=== PATIENT | male | born 1995 | race Caucasian/White ===

== ENCOUNTER 2024-06-22 15:29 | Outpatient (CLI) | payer OTHER, SELFPAY ==
--- NOTE | ~2024-06-22 | US_ITS ---
EXAMINATION: US scrotum doppler DATE: 06/22/2024 17:15 INDICATION: Post traumatic right testicular pain with dense firm) TECHNIQUE: Testicular sonogram utilizing grayscale and Doppler COMPARISON: None. FINDINGS: The right testis measures 4.2 x 2.4 x 3.0 cm. The left testis measures 4.6 x 2.0 x 3.1 cm. There is a 3.0 x 2.5 x 2.0 cm region of prominent decreased echogenicity in the right testis. Otherwise symmetr ic normal grayscale appearance to both testes. Vascular flow is identified in both testes which is sl ightly more prominent in the region of decreased echogenicity in the right testis. There is no eviden t mass effect or distortion of the normal striated pattern of vascularity in the right testis. The pe ripheral capsule of the right testis appears to remain intact. The right epididymis is normal with no rmal vascular flow. The left epididymis is normal with normal vascular flow. There is no varicocele o r hydrocele. IMPRESSION: 1. 3.0 x 2.5 x 2.0 cm region of prominent decreased echogenicity and with mildly increased vascular flow in the right testis. There is however no evident distortion or mass effect upon the vessels on c olor Doppler passing through the region of decreased echogenicity which argues against a mass and fav or a posttraumatic contusion. Would however recommend follow-up ultrasound in a few weeks to document resolution. Reviewed, dictated and finalized at location A. IMPRESSION: 1. 3.0 x 2.5 x 2.0 cm region of prominent decreased echogenicity and with mild ly increased vascular flow in the right testis. There is however no evident dis tortion or mass effect upon the vessels on color Doppler passing through the re gion of decreased echogenicity which argues against a mass and favor a posttrau matic contusion. Would however recommend follow-up ultrasound in a few weeks to document resolution.
== END 2024-06-22 15:30 | disposition home or self-care (01) ==
PROVIDERS: PCP Nurse Practitioner Family; Visit Provider Nurse Practitioner Family
DX: N50.811 Right testicular pain (principal)
CPT/HCPCS: 76870; 93976

== ENCOUNTER 2025-06-05 16:02 | Emergency (ER) | payer OTHER, SELFPAY ==
--- OUTSIDE RECORDS SUMMARY | 2025-06-05 16:05 | XMS_ITS | Clinical Summary ---
Author Organization [facility] Address [address] [place] [address] Care Team Providers Care Merchandise Carrier Name Role Phone Chas Alpa Newberry APRN-TECHNICAL SPECIALIST CYTOGENETICS Primary Care Provider Source Comments [facility],non-owned Affiliates and Associated Physician Practices is amultiple site organization consisting of ambulatory clinics and hospital sitesin [place], [place], [place] and [place]. This disclosure is being madepursuant to the Care Everywhere program and may not contain all information available regarding this patient. Last updated 18.[facility] Medications * This document contains information received from the source organization and may not represent a complete record from that organization. * Be aware that medications may not be up to date on this document. Alwaysverify current medications with the patient. hydrOXYzine HCl (Atarax) 50 MG tabletIndication s:Anxiety Take 1 (one) tablet by mouth every 6 hours as needed Reasons: Feeling Anxious 15 tablet 1 5 Active buPROPion SR 12hr (Wellbutrin-SR) 150 MG tabletIndication s:Depression,Ezequiel or Depressive Disorder,SSRI-In duced Sexual Dysfunction Take 1 (one) tablet by mouth 2 times daily Reasons: Depression, Major Depressive Disorder, Sexual Dysfunction Resulting From SSRI Medication Use 15 tablet 1 5 Active PARoxetine (Paxil) 30 MG tabletIndication s:Major Depressive Disorder Take 1 (one) tablet by mouth once daily Reasons: Major Depressive Disorder 15 tablet 1 5 Active traZODone (Desyrel) 50 MG tabletIndication s:Insomnia Take 1 (one) tablet by mouth nightly as needed for Insomnia Reasons: Trouble Sleeping 15 tablet 1 5 Active Active Problems Problem Noted Date Diagnosed Date Episode of recurrent major d epressive disorder, unspecified depression episode severity 03/26/2025 Encounters * This document contains information received from the source organization and may not represent a complete record from that organization. Date Type Department Care Team Description 03/26/2025 Travel from Last 3 Months Family History Medical History Relation Name Comments Hypertension Father Relation Name Status Comments Father Social History Tobacco Use Types Packs/Day Years Used Date Smoking Tobacco: Every Day Cigarettes Smokeless Tobacco: Never Tobacco Cessation:Ready to Q uit: Not Asked; Counseling Given: Not Answered Alcohol Use Standard Drinks/Week Comments Not Currently 0 (1 standard drink = 0.6 oz pur e alcohol) AUDIT-C Answer Date Recorded Q1: How often do you have a drink containing alcohol? Never 03/26/2025 Q2: How many drinks containi ng alcohol do you have on a typical day when you are drinking? Patient does not drink Q3: How often do you have si x or more drinks on one occasion? Never 03/26/2025 Overall Financial Resource Strain (CARDIA) Answe r Date Recorded How hard is it for you to pa y for the very basics like food, housing, medical care, and heating? Patient declined 03/26/2025 PHQ-2 Answer Date Recorded Patient Health Questionnaire-2 Score 6 03/26/2025 [facility] - Occupational Stress Questionnaire Answer Date Recorded Do you feel stress - tense, restless, nervous, or anxious, or unable to sleep at night because your mind is troubled all the time - these days? Patient declined 03/26/2025 Hunger Vital Sign Answer Date Recorded Within the past 12 months, y ou worried that your food would run out before you got the money to buy more. Patient declined Within the past 12 months, t he food you bought just didn't last and you didn't have money to get more. Patient declined PRAPARE - Transportation Answer Date Re corded In the past 12 months, has l ack of transportation kept you from medical appointments or from getting medications? No 03/08 In the past 12 months, has l ack of transportation kept you from meetings, work, or from getting things needed for daily living? No 03/26/2025 Housing Stability Vital Sign Answer Shoaib e Recorded In the last 12 months, was t here a time when you were not able to pay the mortgage or rent on time? No 03/26/2025 In the past 12 months, how m any times have you moved where you were living? 0 03/26/2025 At any time in the past 12 m [facility], were you homeless or living in a senior care (including now)? No 03/26/2025 Sex and Gender Information Value Date Recorded Sex Assigned at Not on file Legal Sex Male 5:12 PM CDT Gender Identity Not on file Sexual Orientation Not on file Last Filed Vital Signs Vital Sign Reading Time Taken Comments Blood Pressure 138/76 03/29/2025 8:44 AM CDT Pulse 75 03/29/2025 8:44 AM CDT Temperature 36.6 C (97.9 F) 03/29/2025 8:44 AM CDT Respiratory Rate 18 03/29/2025 8:44 AM CDT Oxygen Saturation 99% 03/29/2025 8:44 AM CDT Inhaled Oxygen Concentration - - Weight 88.5 kg (195 lb) 03/26/2025 10:33 PM CDT Height 180.3 cm (5' 10.98) 03/26/2025 10:33 PM CDT Body Mass Index 27.21 03/26/2025 10:33 PM CDT Plan of Treatment Health Maintenance Due Date Last Done Comments HIV SCREENING 2010 HEPATITIS C SCREENING 04/15/2013 DTAP/TDAP/TD VACCINES (1 - Tdap) 2014 HEPATITIS B VACCINE (1 of 3 - 19+ 3-dose series) 2014 PNEUMOCOCCAL VACCINE (1 of 2 - PCV) 2014 HPV VACCINE (1 - 3-dose SCDM series) 2022 COVID-19 VACCINE (3 - 2023-2 5 season) 2024 03/21/2021, 02/19/2021 DEPRESSION SCREENING 11/07/2024 INFLUENZA VACCINE (#1) 2025 ZOSTER VACCINE (1 of 2) 2045 HIB VACCINE Aged Out No longer eligi ble based on patient's age to complete this topic MENINGOCOCCAL (Group B) VACCINE SHARED DECISION-MAKING Aged Out No longer eligible based on patient's age to complete this topic MENINGOCOCCAL GROUPS A/C/Y/W VACCINE Aged Out No longer eligible b ased on patient's age to complete this topic Procedures Procedure Name Priority Date/Time Associated Diagnosis Comments CARDIAC EKG ORDER 03/27/2025 5:4 3 PM CDT T4 FREE DIRECT REFLEXED Routine 03/26/2025 11:55 PM CDT TSH REFLEX FREE T4 Routine 03/26/2025 11 :55 PM CDT LIPID PROFILE Routine 03/26/2025 11:55 PM CDT HEMOGLOBIN A1C Routine 03/26/2025 11:55 PM CDT COMPREHENSIVE METABOLIC PANEL Routine 03/26/2025 11:55 PM CDT CBC W AUTO DIFFERENTIAL Routine 03/26/2025 11:55 PM CDT URINE DRUG SCREEN IMMUNOASSAY STAT 03/26/2025 11:55 PM CDT EKG 12-LEAD STAT 03/26/2025 5:33 PM CDT Tachycardia from Last 3 Months Results * CARDIAC EKG ORDER (03/27/2025 5:43 PM CDT) Narrative 03/27/2025 5:43 PM CDT Ordered by an unspecified provider. us Scanned Document CARDIAC SERVICES ORDERABLES Fin al Result * T4 FREE DIRECT REFLEXED (03/26/2025 11:55 PM CDT) T4 Free 0.99 0.70 - 1.50 ng/dL 03/27/2025 1:08 AM CDT [facility] Blood BLOOD SPECIMEN / Unknown Venipuncture / Unknown 03/26/2025 11:55 PM CDT 03/27/2025 12:01 AM CDT Violeta Uriarte FREE LANCE MODEL-ASSISTANT WAREHOUSE MANAGER LAB - CHEMISTRY ORDERABLE S Final Result Performing Organization Address City/[facility]/ZIP Co de Phone Number [facility] [address] [place] [address] * (ABNORMAL) TSH REFLEX FREE T4 (03/26/2025 11:55 PM CDT) TSH 5.452(H) 0.350 - 4.940 uIU/mL 03/27/2025 12:37 AM CDT [facility] Blood BLOOD SPECIMEN / Unknown Venipuncture / Unknown 03/26/2025 11:55 PM CDT 03/27/2025 12:01 AM CDT Violeta Uriarte FREE LANCE MODEL-ASSISTANT WAREHOUSE MANAGER LAB - CHEMISTRY ORDERABLE S Final Result Performing Organization Address [facility] de Phone Number [facility] [address] [place] [id number] * HEMOGLOBIN A1C (03/26/2025 11:55 PM CDT) Hemoglobin A1c 5.1 <5.7 % 03/27/2025 12:34 AM CDT [facility] Estimated Average Glucose 100 mg/dL 03/27/2025 12:34 AM CDT [facility] Blood BLOOD SPECIMEN / Unknown Venipuncture / Unknown 03/26/2025 11:55 PM CDT 03/27/2025 12:01 AM CDT Narrative [facility] - 03/27/2025 12:34 AM CDT HbA1c Interpretation: Normal: < 5.7% Pre-diabetes: 5.7-6.4% Diabetes: Equal to or greater than 6.5% Test results diagnostic of diabetes should be repeated for confirmation. Treatment target values recommended by ADA and other clinical organizations should be used to evaluate metabolic control in patients. This test should not replace glucose testing for patients with Type 1 diabetes, pediatric patients, or women. Falsely low HbA1c results may be observed in patients with clinical conditions that shorten erythrocyte life span or decrease mean erythrocyte age such as the presence of unstable hemoglobin variants, elevated hemoglobin F level or other causes of hemolytic anemia. HbA1c may not accurately reflect glycemic control when clinical conditions that affect erythrocyte survival are present. Severe Iron deficiency anemia may yield falsely high results. Hemoglobin A1c assay should not be used to diagnose or monitor diabetes in patients with malignancy, recent blood transfusion, chronic kidney or liver disease. This method may yield falsely low results when hemoglobin (HbF) exceeds 5% in the specimen. The Lyman Alinity assay for the measurement of HbA1c is a National Glycohemoglobin Standardization Program (NGSP) certified method. Violeta Julee Chapito FREE LANCE MODEL-ASSISTANT WAREHOUSE MANAGER LAB - CHEMISTRY ORDERABLE S Final Result [facility] [address] [place] [address] * (ABNORMAL) CBC W AUTO DIFFERENTIAL (03/26/2025 11:55 PM CDT) WBC 11.1(H) 4.0 - 10.7 x10E9/L 03/27/2025 12:05 AM CDT [facility] RBC Count 5.56 4.30 - 5.80 x10E12/L 03/27/2025 12:05 AM CDT [facility] Hemoglobin 17.2 13.3 - 17.5 g/dL 03/27/2025 12:05 AM CDT [facility] Hematocrit 51.1 38.7 - 51.1 % 03/27/2025 12:05 AM CDT [facility] MCV 91.9 80.0 - 98.0 fL 03/27/2025 12:05 AM CDT [facility] MCH 30.9 26.7 - 33.6 pg 03/27/2025 12:05 AM CDT [facility] MCHC 33.7 31.7 - 36.3 g/dL 03/27/2025 12:05 AM CDT [facility] RDW-CV 12.6 11.3 - 14.8 % 03/27/2025 12:05 AM CDT [facility] Platelet Count 325 150 - 420 x10E9/L 03/27/2025 12:05 AM CDT [facility] MPV 9.7 7.8 - 11.4 fL 03/27/2025 12:05 AM CDT [facility] Neutrophil % 61.4 41.0 - 74.0 % 03/27/2025 12:05 AM CDT [facility] Lymphocyte % 26.2 17.0 - 47.0 % 03/27/2025 12:05 AM CDT [facility] Monocyte % 7.2 3.0 - 11.0 % 03/27/2025 12:05 AM CDT [facility] Eosinophil % 4.3 0.0 - 7.0 % 03/27/2025 12:05 AM CDT [facility] Basophil % 0.5 0.0 - 1.6 % 03/27/2025 12:05 AM CDT [facility] Immature Granulocytes % 0.4 0.0 - 1.0 % 03/27/2025 12:05 AM CDT [facility] Neutrophil Absolute 6.78 1.60 - 7.50 x10E9/L 03/27/2025 12:05 AM CDT [facility] Lymphocyte Absolute 2.90 1.00 - 4.40 x10E9/L 03/27/2025 12:05 AM CDT [facility] Monocyte Absolute 0.80 0.15 - 1.00 x10E9/L 03/27/2025 12:05 AM CDT [facility] Eosinophil Absolute 0.48 0.00 - 0.60 x10E9/L 03/27/2025 12:05 AM T [facility] Basophil Absolute 0.05 0.00 - 0.13 x10E9/L 03/27/2025 12:05 AM CDT [facility] Blood BLOOD SPECIMEN / Unknown Venipuncture / Unknown 03/26/2025 11:55 PM CDT 03/27/2025 12:01 AM CDT Violeta Uriarte FREE LANCE MODEL-ASSISTANT WAREHOUSE MANAGER LAB - HEMATOLOGY ORDERABL ES Final Result [facility] [address] [place] [address] * (ABNORMAL) COMPREHENSIVE METABOLIC PANEL (03/26/2025 11:55 PM CDT) Pathologist [facility] Glucose 85 70 - 99 mg/dL 03/27/2025 12:19 AM CDT [facility] Sodium 143 136 - 145 mmol/L 03/27/2025 12:19 AM CDT [facility] Potassium 4.1 3.5 - 5.1 mmol/L 03/27/2025 12:19 AM T [facility] Chloride 110(H) 98 - 107 mmol/L 03/27/2025 12:19 AM T [facility] CO2 21(L) 22 - 29 mmol/L 03/27/2025 12:19 AM CDT [facility] Calcium 9.4 8.4 - 10.4 mg/dL 03/27/2025 12:19 AM T [facility] Anion Gap 12 6 - 16 mmol/L 03/27/2025 12:19 AM CDT [facility] BUN 9 5.3 - 18.7 mg/dL 03/27/2025 12:19 AM T [facility] Creatinine 0.97 0.72 - 1.25 mg/dL 03/27/2025 12:19 AM [facility] Alkaline Phosphatase 77 40 - 150 U/L 03/27/2025 12:19 AM T [facility] ALT 41 6 - 57 U/L 03/27/2025 12:19 AM T [facility] AST 26 10 - 48 U/L 03/27/2025 12:19 AM T [facility] Protein Total 8.1 6.4 - 8.3 gm/dL 03/27/2025 12:19 AM T [facility] Albumin 4.8(H) 3.1 - 4.5 gm/dL 03/27/2025 12:19 AM T [facility] Bilirubin Total 0.2 0.2 - 1.2 mg/dL 03/27/2025 12:19 AM T [facility] eGFR by CKD-EPI >90 >=90 mL/min/1.7 3 m2 03/27/2025 12:19 AM T [facility] Blood BLOOD SPECIMEN / Unknown Venipuncture / Unknown 03/26/2025 11:55 PM CDT 03/27/2025 12:01 AM CDT us Violeta Uriarte FREE LANCE MODEL-ASSISTANT WAREHOUSE MANAGER LAB - CHEMISTRY ORDERABLE S Final Result [facility] [address] [place] [address] * URINE DRUG SCREEN IMMUNOASSAY (03/26/2025 11:55 PM CDT) [facility] Amphetamines Screen Urine Not detected Not detected 03/27/2025 12:16 AM CDT [facility] Barbiturates Screen Urine Not detected Not detected 03/27/2025 12:16 AM CDT [facility] Benzodiazepines Screen Urine Not detected Not detected 03/27/2025 12:16 AM CDT [facility] Cannabinoids Screen Urine Not detected Not detected 03/27/2025 12:16 AM CDT [facility] Cocaine Screen Urine Not detected Not detected 03/27/2025 12:16 AM CDT [facility] Fentanyl Urine Not detected Not detected 03/27/2025 12:16 AM CDT [facility] Methadone Screen Urine Not detected Not detected 03/27/2025 12:16 AM CDT [facility] Opiate Screen Urine Not detected Not detected 03/27/2025 12:16 AM CDT [facility] Phencyclidine Screen Urine Not detected Not detected 03/27/2025 12:16 AM CDT [facility] Urine URINE / Unknown Collection / Unknown 03/26/2025 11:55 PM CDT 03/27/2025 12:01 AM CDT Narrative [facility] - 03/27/2025 12:16 AM CDT This drug screen is designed for MEDICAL purposes only. It is not to be used for legal purposes, including but not limited to worker's comp, police investigations, occupational issues, child custody, etc. Any positive result is only presumptive and must be confirmed with a separate confirmatory test ordered by the physician. Drug Screening Test Cutoff Values: AMPHETAMINES 1000 ng/mL BARBITURATES 200 ng/mL BENZODIAZEPINES 200 ng/mL CANNABINOIDS(THC) 50 ng/mL COCAINE 300 ng/mL FENTANYL 1.5 ng/mL METHADONE 300 ng/mL OPIATES 300 ng/mL PHENCYCLIDINE(PCP) 25 ng/mL Joy Holbrook MD LAB - URINE CHEMISTRY STACY ROWELL Final Result [facility] [address] [place] [address] * (ABNORMAL) LIPID PROFILE (03/26/2025 11:55 PM CDT) Cholesterol 227(H) <200 mg/dL 03/27/2025 12:19 AM CDT [facility] Triglycerides 224(H) <150 mg/dL 03/27/2025 12:19 AM CDT [facility] HDL Cholesterol 38(L) >40 mg/dL 12:19 AM CDT [facility] LDL Calculated 144(H) <130 mg/dL 03/27/2025 12:19 AM CDT [facility] VLDL Calculated 45(H) <=30 mg/dL 12:19 AM CDT [facility] Chol HDL Ratio 6.0(H) <4.5 03/27/2025 12:19 AM CDT [facility] LDL/HDL Ratio 3.8 <5.0 03/27/2025 12:19 AM CDT [facility] Blood BLOOD SPECIMEN / Unknown Venipuncture / Unknown 03/26/2025 11:55 PM CDT 03/27/2025 12:01 AM CDT Violeta Uriarte FREE LANCE MODEL-ASSISTANT WAREHOUSE MANAGER LAB - CHEMISTRY ORDERABLE S Final Result [facility] [address] [place] [address] * EKG 12-LEAD (03/26/2025 5:33 PM CDT) Ventricular Rate 93 BPM [facility] Atrial Rate 93 BPM [facility] P-R Interval 134 ms [facility] QRS Duration ms 96 ms [facility] Q-T Interval ms 336 ms [facility] QTC Calculation (Bezet) 417 ms [facility] Calculated P [place] 62 degrees [facility] Calculated R [place] 29 degrees [facility] Calculated T [place] 50 degrees [facility] Interpretation EKG Normal sinus rhythm Incomplete right bundle branch block Borderline ECG No previous ECGs available Confirmed by GUERRERO GALINDO MD ([id number]) on 03/27/2025 8:03:07 PM [facility] 03/26/2025 5:33 PM CDT 03/27/2025 8:03 PM CDT us Joy Holbrook MD ECG ORDERABLES Edited Res ult - Final [facility] from Last 3 Months Insurance [employer] Advance Directives * Full Code (Latest Code Status on File) Date Activated Date Inactivated Comments 03/26/2025 11:34 PM 03/29/2025 3:17 PM Care Teams Merchandise Carrier Relationship Specialty Start Date End Date Alpa Doherty, FREE LANCE MODEL-TECHNICAL SPECIALIST [employer]TO[employer]ET[employer] [address] [place] [phone] PCP - General Nurse Practitioner Family 5/20/25
--- OUTSIDE RECORDS SUMMARY | 2025-06-05 16:05 | XMS_ITS | Patient Health Record ---
Author Organization [facility] Address [address] [facility] [address] [place] [address] Care Team Providers Care Rn Disease Management Name Role Phone Alpa Serna Primary Care Provider Susy Alexander Unavailable [phone] Allergies Allergen (clinical drug ingredient) Drug/Non Drug Allergy documented on EMR Reaction Allergy Type Onset Date Status azithromycin Zithromax Unknown Drug Allergy Acti ve Results Component Value Reference Range Notes UDT Reviewed date:03/12/2025 12:53:36 PM Interpretation: Performing Lab: Notes/Report: THC n 0 - 50 ng/ml Cocaine n 0 - 300 ng/ml Amphetamine n 0 - 1000 ng/ml Buprenorphine (BUP) n 0 - 10 ng/ml Secobarbital (Bar) n 0 - 300 ng/ml Oxazepam (BZO) n 0 - 300 ng/ml 5-nunfpqwmdv-5,4-bdfwhzto-6,3-diphenylpyrrolidine ([place] P) n 0 - 300 ng/ml Methamphetamine (MET) n 0 - 1000 ng/ml Methylenedioxymethamphetamine (MDMA) n 0 - 500 ng/ml Morphine (MOP 300/[id number]) n 0 - 300 ng/ml Methadone (MTD) n 0 - 300 ng/ml Phencyclidine (PCP) n 0 - 25 ng/ml Nortriptyline (TCA) n 0 - 1000 ng/ml Oxycodone n 0 - 300 ng/ml x n 0 - 300 ng/ml Reason For Referral No Information Medications Medication SIG (Take, Route, Frequency, Duration) Notes Start Date End Date Status PARoxetine HCl 10 MG 1 tablet in the mor divina Orally Once a day; Duration: 30 days 05/14/2025 Active QUEtiapine Fumarate 25 MG TAKE 1 TABLET BY MOUTH EVERY DAY AT BEDTIME Oral; Duration: 30 Days Not-Taki ng ARIPiprazole 5 MG TAKE 1 TABLET BY BRAYDON TH DAILY Oral; Duration: 30 Days Not-Taking PARoxetine HCl 10 MG TAKE 1 TABLET BY MO UTH DAILY Oral; Duration: 30 Days Active PARoxetine HCl 20 MG 1 tablet in the mor divina Orally Once a day; Duration: 30 days Active buPROPion HCl ER (XL) 150 MG 1 tablet in the morning Orally Once a day; Duration: 30 days Active Social History Tobacco Use: Social History Observation Description Date Details (start date - stop date) Current Smoker NA - NA Sex Assigned At : Social History Observation Description Sex Assigned At Male Tobacco Control (Standard) Question Answer Notes Tobacco use: Current smoker AUDIT-C (Standard) Question Answer Notes Did you have a drink containing alcohol in the p ast year? No Interpretation Positive Problems Problem Type SNOMED Code ICD Code Onset Dates Problem Status W/U Status Risk Notes Problem Severe recurrent major depression without psychotic features (75426912) Major depressive disorder, recurrent severe without psychotic features (F33.2) Active confirmed Problem Generalized anxiety disorder (17171501) Generalized anxiety disorder (F41.1) Active confirmed Vital Signs Heart Rate 92 /min 05/14/2025 Height-cm 180.34 cm 05/14/2025 Blood pressure diastolic 81 mm Hg 05/14/2025 Weight-kg 98.88 kg 05/14/2025 Height 71 in 05/14/2025 Blood pressure systolic 143 mm Hg 05/14/2025 Weight 218 lbs 05/14/2025 BMI 30.4 kg/m2 05/14/2025 Encounters Encounter Location Date Provider Diagnosis [facility] [employer] [address] [address] 03/12/2025 Susy Riley Major depressive disorder, recurrent severe without psychotic features F33.2 ; Generalized anxiety disorder F41.1 ; Encounter for screening for depression Z13.31 ; Encounter for screening for cardiovascular disorders Z13.6 and Nicotine use Z72.0 [employer] [address] [facility] [address] [place] [address] 05/14/2025 Susy Riley Nicotine use Z72.0 ; Major depressive disorder, recurrent severe without psychotic features F33.2 and Generalized anxiety disorder F41.1 Assessments Encounter Date Diagnosis (ICD Code) Assessment Notes Treatment Notes Treatment Clinical Notes Section Notes 03/12/2025 Major depressive disorder, recurrent severe without psychotic features (ICD-10 - F33.2) Common side effects of Wellbutrin include insomnia, increased anxiety, nausea, dizziness, decreased appetite, restlessness, irritability and anger, increased sweating or hot flashes, tremors, joint pain. Wellbutrin is not recommended in individuals with a history of seizures. If side effects persist, please contact the office. 03/12/2025 Generalized anxiety disorder (ICD-10 - F41.1) SSRI/SNRI side effects discussed including but not limited to, gastric upset, nausea, vomiting, diarrhea and/or constipation, weight changes, sexual side effects including loss of libido, increased suicidal thoughts/behavi ors in children and young adults, and serotonin syndrome. 05/14/2025 Nicotine use (ICD-10 - Z72.0) 05/14/2025 Major depressive disorder, recurrent severe without psychotic features (ICD-10 - F33.2) Common side effects of Wellbutrin include insomnia, increased anxiety, nausea, dizziness, decreased appetite, restlessness, irritability and anger, increased sweating or hot flashes, tremors, joint pain. Wellbutrin is not recommended in individuals with a history of seizures. If side effects persist, please contact the office. 03/12/2025 Encounter for screening for depression (ICD-10 - Z13.31) 03/12/2025 Encounter for screening for cardiovascular disorders (ICD-10 - Z13.6) 05/14/2025 Generalized anxiety disorder (ICD-10 - F41.1) SSRI/SNRI side effects discussed including but not limited to, gastric upset, nausea, vomiting, diarrhea and/or constipation, weight changes, sexual side effects including loss of libido, increased suicidal thoughts/behavi ors in children and young adults, and serotonin syndrome. 03/12/2025 Nicotine use (ICD-10 - Z72.0) 03/12/2025 Other Discontinue Vraylar, not tolerating daily dosing secondary to akathisia, minimal benefit at current dose. Increase Paxil to 20mg daily for anxiety Start Wellbutrin 150mg daily for mood, anxiety Patient educated on all medications including potential benefits, side effects, risks. Educated on proper dosing schedule and importance of compliance. Resources provided for counseling -Assessment and treatment plan reviewed with patient. -Compliance with treatment plan importance discussed. -Discussed the risks/benefits of this medication -Discussed medication side effects. -Contact office if symptoms worsen. -Discussed that it can take up to 6-8 weeks to see full therapeutic effects of psychotropic medications. -Crisis prevention hotline 988. 05/14/2025 Other Stable on current medication regimen, continue at current doses. -Refills sent in today -No concerns today Patient educated on all medications including potential benefits, side effects, risks. Educated on proper dosing schedule and importance of compliance. -Assessment and treatment plan reviewed with patient. -Compliance with treatment plan importance discussed. -Discussed the risks/benefits of this medication -Discussed medication side effects. -Contact office if symptoms worsen. -Discussed that it can take up to 6-8 weeks to see full therapeutic effects of psychotropic medications. -Crisis prevention hotline 988. Plan Of Treatment Next Appt Details Provider Name:Susy Sergio shah, 08/13/2025 03:15:00 PM, [address] [facility] [address], [facility] [address], [place], [address], Insurance Providers Payer Name Payer Address Payer Phone Subscriber Number Group Number Insured Name Patient Relationship to Insured Coverage Start Date Coverage End Date Knip [address] [place] [address] [id number] Jorge Penny Self - patient is the insured 5 [facility] [address] [address] [place] [address] [id number] Jorge Penny Self - patient is the insured 5 Medical (General) History Medical History History ICD Code Anxiety Past Psychiatric History: Anxiety Disord er,Major Depressive Episode undefined
--- OUTSIDE RECORDS SUMMARY | 2025-06-05 16:05 | XMS_ITS | Clinical Summary ---
Author Organization [facility] Address [address] [place] [id number] Care Team Providers Care Binder Sorter Name Role Phone Unavailable Primary Care Provider Unavailabl e Allergies Active Allergy Reactions Criticality Noted Date Comments Azithromycin Unknown 05/14/2020 Medications No known medications Social History Tobacco Use Types Packs/Day Years Used Date Smoking Tobacco: Some Days Smokeless Tobacco: Current Chew Alcohol Use Standard Drinks/Week Comments Yes 0 (1 standard drink = 0.6 oz pur e alcohol) social Sex and Gender Information Value Date Recorded Sex Assigned at Not on file Legal Sex Male 6:50 PM CDT Gender Identity Not on file Sexual Orientation Not on file Last Filed Vital Signs Vital Sign Reading Time Taken Comments Blood Pressure 141/93 05/14/2020 10:35 AM CDT Pulse 72 05/14/2020 10:35 AM CDT Temperature 36.7 C (98.1 F) 05/14/2020 10:35 AM CDT Respiratory Rate 20 05/14/2020 10:35 AM CDT Oxygen Saturation 98% 05/14/2020 10:35 AM CDT Inhaled Oxygen Concentration - - Weight 90.7 kg (200 lb) 05/14/2020 10:35 AM CDT Height 177.8 cm (5' 10) 05/14/2020 10:35 AM CDT Body Mass Index 28.7 05/14/2020 10:35 AM CDT Plan of Treatment Health Maintenance Due Date Last Done Comments Annual Physical 1998 Hepatitis C 2013 DTaP, Tdap and Td Vaccines ( 1 - Tdap) 2014 Hepatitis B Vaccines (1 of 3 - 19+ 3-dose series) 2014 Pneumococcal Vaccine: Pediat rics (0 to 5 Years) and At-Risk Patients (6 to 49 Years) (1 of 2 - PCV) 2014 HPV Vaccines (1 - 3-dose SCD M series) 2022 COVID-19 Vaccine (2023-2 5 season) 2024 Meningococcal B Vaccine Aged Out No l onger eligible based on patient's age to complete this topic Meningococcal Vaccine Aged Out No bo emily eligible based on patient's age to complete this topic RSV Immunizations Under 20 Months Aged Out No longer eligible based on patient's age to complete this topic Insurance
[2025-06-05 16:10] VITALS: BP 129/78; PULSE 88; RESP 18; TEMP 36.9; O2SAT 99
--- NOTE | 2025-06-05 16:11 | ED.ABDPAIN ---
HPI - Abdominal Pain General Stated Complaint: Pain in stomach Time Seen by Provider: 06/05/25 16:11 Source: patient and RN notes reviewed Mode of arrival: ambulatory Limitations: no limitations History of Present Illness HPI narrative: 30 y/o male presented for c/o worsening right testicular pain and swelling over the past year. Says he had US 06/2024, and was told it was pain due to trauma. Pt did not have f/u US since then. Has continued to have lingering constant pain 3/10. Says today pain is 6/10, endorses more swelling than in the past, and says he is tired of the pain. Denies new trauma. Denies urinary complaints, abdominal pain, n/v/d/f/c. Related Data Home Medications ?Medication ?Instructions ?Recorded ?Confirmed ?Last Taken ?Type albuterol sulfate 90 mcg/actuation 1 puff inhalation Q4H PRN 06/06/24 05/07/25 Unknown History aerosol inhaler hydroxyzine HCl 50 mg tablet 50 mg PO QID PRN 04/04/25 05/07/25 Unknown History trazodone 50 mg tablet 50 mg PO QHS PRN 04/04/25 05/07/25 Unknown History aripiprazole 5 mg tablet mg 06/05/25 Unknown History Allergies Allergy/AdvReac Type Severity Reaction Status Date / Time No Known Allergies Allergy Mild Verified 07/13/24 14:45 Review of Systems Review of Systems: CONSTITUTIONAL: Denies body aches, fever, chills ENT: Denies rhinorrhea, congestion CARDIOVASCULAR: Denies chest pain, palpitations, or edema. RESPIRATORY: Denies cough or dyspnea. GASTROINTESTINAL: Denies abdominal pain, nausea, vomiting, diarrhea. GENITOURINARY: Reports right testicular pain swelling Denies dysuria, hematuria, or CVA tenderness. SKIN: Denies rash MUSCULOSKELETAL: Denies back pain NEUROLOGIC: Denies headache All systems reviewed & are unremarkable except as noted in HPI and below PMFSH Past Medical History Medical History Anxiety Surgical History Surgical History H/O wisdom tooth extraction Family History Family History Mother Depression Hypertension Father Depression Hypertension Grandparent Hypertension Social History Social History Smoking status: Former smoker Tobacco type: cigarettes Alcohol intake: never Substance use: never Do You Feel Safe in your Home?: Yes Lack of Transportation: No Lack of Food: Never True Current Housing: I Have Housing Concerned About Future Housing: No Difficulty Paying Gas/Electric Bills: No Difficulty Paying for Meds: No Currently Unemployed: No Education: High School Diploma/GED Difficulty w/ Childcare or Family Care: No Living arrangements: with family Additional living arrangements comments: Occupation/Education: occupation Spiritual care concerns: No Agree to blood products: Yes Comments At time of signature, I have reviewed and agree with nursing past medical, surgical, social and family history unless otherwise noted. Please see nursing chart for further information. There is no relevant family history pertinent to the presenting complaint Exam Narrative: GENERAL: Well-appearing, and in no acute distress. EYES: Conjunctivae normal. ENT: Mucous membranes pink and moist. CHEST: No respiratory distress. Clear to auscultation. HEART: Regular rate and rhythm. No murmur appreciated. Normal peripheral pulses. ABDOMEN: abd soft, nondistended, normal active bowel sounds. Nontender abdomen; No guarding, rebound tenderness, asymmetry : Right testicular swelling, firm, tender, mild erythema. Left testicular appears normal in size and color. EXTREMITIES: Normal range of motion. No edema. SKIN: Warm, dry, no rash. Capillary refill normal. Normal skin turgor. NEURO: No focal deficits. Alert and oriented x3. PSYCH: Normal affect. Course Course Emergency Course: Patient is aware of diagnosis, understands and agrees to treatment plan. Anticipatory guidance given. Patient agrees to follow-up as directed and is aware of reasons to seek care at the emergency department. Portions of this record may have been created with voice recognition software Level of Care: Express Care Visit Vital Signs Vital signs: Vital Signs Temperature 98.5 F 06/05/25 16:10 Pulse Rate 88 06/05/25 16:10 Respiratory Rate 18 06/05/25 16:10 Blood Pressure 129/78 06/05/25 16:10 Pulse Oximetry 99 06/05/25 16:10 Oxygen Delivery Room Air 06/05/25 16:10 Temperature 98.5 F 06/05/25 16:10 Pulse Rate 88 06/05/25 16:10 Respiratory Rate 18 06/05/25 16:10 Blood Pressure 129/78 06/05/25 16:10 Pulse Oximetry 99 06/05/25 16:10 Oxygen Delivery Room Air 06/05/25 16:10 MDM - Abdominal Pain MDM Narrative Medical decision making narrative: Pt with right testicular pain and swelling. Advised ER transfer. Differential Diagnosis Differential diagnosis: Likely other (hydrocele, spermatocele, varicocele, torsion, tumor, inguinal hernia, orchitis, urethritis, epididymitis, uti, prostatitis, hailey gangrene, tinea cruris, std) Discharge Plan Discharge Clinical Impression: Right testicular pain Patient Disposition: Acute Care Hospital Condition: Stable Patient Language: Latvian Prescriptions: No Action albuterol sulfate 90 mcg/actuation HFA aerosol inhaler 1 puff inhalation Q4H PRN bupropion HCl [Wellbutrin XL] 150 mg tablet extended release 24 hr 150 mg PO QAM Qty: 30 1RF hydroxyzine HCl 50 mg tablet 50 mg PO QID PRN trazodone 50 mg tablet 50 mg PO QHS PRN paroxetine HCl 30 mg tablet 30 mg PO DAILY Qty: 30 1RF Follow-up/Referrals: Alpa Doherty APRN [Primary Care Provider] - Time of Disposition: 16:37
== END 2025-06-05 16:34 | disposition short-term general hospital (02) ==
LOC: EXPTROY 16:04
PROVIDERS: Emergency Provider Nurse Practitioner Family; PCP Nurse Practitioner Family
DX: N50.811 Right testicular pain (principal); F41.9 Anxiety disorder, unspecified; Z87.891 Personal history of nicotine dependence
CPT/HCPCS: 99212; G0463

== ENCOUNTER 2025-06-05 16:48 | Emergency (ER) | payer OTHER, SELFPAY ==
--- NOTE | ~2025-06-05 | US_ITS ---
EXAMINATION: US scrotum doppler DATE: 06/05/2025 17:37 INDICATION: rt testicle pain . TECHNIQUE: Grayscale and Doppler ultrasound images of the testes were obtained. COMPARISON: 06/22/2024. FINDINGS: The right testis measures 6.4 x 4.2 x 4.2 cm. The left testis measures 4.4 x 1.6 x 2.5 cm. 6.1 x 4.0 x 4.5 cm heterogeneous, lobulated right testicular mass, generally hypoechoic to normal renetta ticular parenchyma, with vascular flow. This mass has increased in size since the prior examination. There is normal vascular flow to both testes. The right epididymis is difficult to visualize due to t he testicular mass. The left epididymis is normal with normal vascular flow. There is no varicocele o r hydrocele. IMPRESSION: 6.1 cm right testicular mass, concerning for malignancy. Recommend urology consultation. Reviewed, dictated and finalized at location K. IMPRESSION: 6.1 cm right testicular mass, concerning for malignancy. Recommend urology cons ultation.
[2025-06-05 17:00] VITALS: BP 128/73; PULSE 84; RESP 16; TEMP 36.8; O2SAT 99
[2025-06-05 17:35] LABS: Hematocrit 44.6 % (42.0-52.0); Hemoglobin 14.9 g/dL (14.0-18.0); Immature Granulocyte Percent A 0.5 % (0-0.5); Lymphocytes Absolute Auto 1.76 K/mm3 (0.9-3.2); Mean Corpuscular HGB Conc 33.4 g/dl (32-36); Mean Corpuscular Hemoglobin 30.5 pg (26-34); Mean Corpuscular Volume 91.2 fl (80-100); Nucleated Red Blood Cells Absolute Auto 0.000 K/mm3 (0.0-0.012); Nucleated Red Blood Cells Perc 0.0 % (0.0-0.2); Platelet Count Result 300 k/mm3 (150-375); Red Blood Count 4.89 M/mm3 (4.6-6.20); White Blood Count 9.7 K/mm3 (4.5-10.0)
--- OUTSIDE RECORDS SUMMARY | 2025-06-05 17:36 | XMS_ITS | Clinical Summary ---
Author Organization [facility] Address [address] [place] [address] Care Team Providers Care Mushroom Sorter Grader Name Role Phone Chas Alpa Newberry APRN-QA TESTER Primary Care Provider Source Comments [facility],non-owned Affiliates and Associated Physician Practices is amultiple site organization consisting of ambulatory clinics and hospital sitesin [place], [place] and [place]. This disclosure is being madepursuant to the Care Everywhere program and may not contain all information available regarding this patient. Last updated 18.[facility] Medications * This document contains information received [...] Recorded Patient Health Questionnaire-2 Score 6 03/26/2025 [facility] ional [facility] - Occupational Stress [...] any time in the past 12 m [facility], were you homeless or living in a usp (including now)? No 03/26/2025 Sex and Gender [...] CDT 03/27/2025 12:01 AM CDT Violeta Uriarte YIELD ENGINEER-TEXTURING MACHINE FIXER LAB - CHEMISTRY ORDERABLE S Final Result Performing Organization Address City/[facility]/ZIP Co de Phone Number [facility] [address] [place] [address] * (ABNORMAL) TSH REFLEX FREE T4 (03/26/2025 11:55 PM CDT) TSH 5.452(H) 0.350 - 4.940 uIU/mL 03/27/2025 12:37 AM CDT [facility] Blood BLOOD SPECIMEN / Unknown Venipuncture / Unknown 03/26/2025 11:55 PM CDT 03/27/2025 12:01 AM CDT Violeta Uriarte YIELD ENGINEER-TEXTURING MACHINE FIXER LAB - CHEMISTRY ORDERABLE S Final Result Performing Organization Address [facility] de Phone Number [facility] [address] [place] [id number] * HEMOGLOBIN A1C (03/26/2025 11:55 PM CDT) Hemoglobin A1c 5.1 <5.7 % 03/27/2025 12:34 AM CDT [facility] Estimated Average Glucose 100 mg/dL 03/27/2025 12:34 AM CDT [facility] Blood BLOOD SPECIMEN / Unknown Venipuncture / Unknown 03/26/2025 11:55 PM CDT 03/27/2025 12:01 AM CDT Narrative [facility] - 03/27/2025 12:34 AM CDT [...] Glycohemoglobin Standardization Program (NGSP) certified method. Violeta Jluee Chapito YIELD ENGINEER-TEXTURING MACHINE FIXER LAB - CHEMISTRY ORDERABLE S Final Result [facility] [address] [place] [address] * (ABNORMAL) CBC W AUTO DIFFERENTIAL (03/26/2025 11:55 PM CDT) WBC 11.1(H) 4.0 - 10.7 x10E9/L 03/27/2025 12:05 AM CDT [facility] RBC Count 5.56 4.30 - 5.80 x10E12/L 03/27/2025 12:05 AM CDT [facility] Hemoglobin 17.2 13.3 - 17.5 g/dL 03/27/2025 12:05 AM CDT [facility] Hematocrit 51.1 38.7 - 51.1 % 03/27/2025 12:05 AM CDT [facility] MCV 91.9 80.0 - 98.0 fL 03/27/2025 12:05 AM CDT [facility] MCH 30.9 26.7 - 33.6 pg 03/27/2025 12:05 AM CDT [facility] MCHC 33.7 31.7 - 36.3 g/dL 03/27/2025 12:05 AM CDT [facility] RDW-CV 12.6 11.3 - 14.8 % 03/27/2025 12:05 AM CDT [facility] Platelet Count 325 150 - 420 x10E9/L 03/27/2025 12:05 AM CDT [facility] MPV 9.7 7.8 - 11.4 fL 03/27/2025 12:05 AM CDT [facility] Neutrophil % 61.4 41.0 - 74.0 % 03/27/2025 12:05 AM CDT [facility] Lymphocyte % 26.2 17.0 - 47.0 % 03/27/2025 12:05 AM CDT [facility] Monocyte % 7.2 3.0 - 11.0 % 03/27/2025 12:05 AM CDT [facility] Eosinophil % 4.3 0.0 - 7.0 % 03/27/2025 12:05 AM CDT [facility] Basophil % 0.5 0.0 - 1.6 % 03/27/2025 12:05 AM CDT [facility] Immature Granulocytes % 0.4 0.0 - 1.0 % 03/27/2025 12:05 AM CDT [facility] Neutrophil Absolute 6.78 1.60 - 7.50 x10E9/L 03/27/2025 12:05 AM CDT [facility] Lymphocyte Absolute 2.90 1.00 - 4.40 x10E9/L 03/27/2025 12:05 AM CDT [facility] Monocyte Absolute 0.80 0.15 - 1.00 x10E9/L 03/27/2025 12:05 AM CDT [facility] Eosinophil Absolute 0.48 0.00 - 0.60 x10E9/L 03/27/2025 12:05 AM T [facility] Basophil Absolute 0.05 0.00 - 0.13 x10E9/L 03/27/2025 12:05 AM CDT [facility] Blood BLOOD SPECIMEN / Unknown Venipuncture / Unknown 03/26/2025 11:55 PM CDT 03/27/2025 12:01 AM CDT Violeta Uriarte YIELD ENGINEER-TEXTURING MACHINE FIXER LAB - HEMATOLOGY ORDERABL ES Final Result [facility] [address] [place] [address] * (ABNORMAL) COMPREHENSIVE METABOLIC PANEL (03/26/2025 11:55 PM CDT) Pathologist [facility] Glucose 85 70 - 99 mg/dL 03/27/2025 12:19 AM CDT [facility] Sodium 143 136 - 145 mmol/L 03/27/2025 12:19 AM CDT [facility] Potassium 4.1 3.5 - 5.1 mmol/L 03/27/2025 12:19 AM T [facility] Chloride 110(H) 98 - 107 mmol/L 03/27/2025 12:19 AM T [facility] CO2 21(L) 22 - 29 mmol/L 03/27/2025 12:19 AM CDT [facility] Calcium 9.4 8.4 - 10.4 mg/dL 03/27/2025 12:19 AM T [facility] Anion Gap 12 6 - 16 mmol/L 03/27/2025 12:19 AM CDT [facility] BUN 9 5.3 - 18.7 mg/dL 03/27/2025 12:19 AM T [facility] Creatinine 0.97 0.72 - 1.25 mg/dL 03/27/2025 12:19 AM [facility] Alkaline Phosphatase 77 40 - 150 U/L 03/27/2025 12:19 AM T [facility] ALT 41 6 - 57 U/L 03/27/2025 12:19 AM T [facility] AST 26 10 - 48 U/L 03/27/2025 12:19 AM T [facility] Protein Total 8.1 6.4 - 8.3 gm/dL 03/27/2025 12:19 AM T [facility] Albumin 4.8(H) 3.1 - 4.5 gm/dL 03/27/2025 12:19 AM T [facility] Bilirubin Total 0.2 0.2 - 1.2 mg/dL 03/27/2025 12:19 AM T [facility] eGFR by CKD-EPI >90 >=90 mL/min/1.7 3 m2 03/27/2025 12:19 AM T [facility] Blood BLOOD SPECIMEN / Unknown Venipuncture / Unknown 03/26/2025 11:55 PM CDT 03/27/2025 12:01 AM CDT us Violeta Uriarte YIELD ENGINEER-TEXTURING MACHINE FIXER LAB - CHEMISTRY ORDERABLE S Final Result [facility] [address] [place] [address] * URINE DRUG SCREEN IMMUNOASSAY (03/26/2025 11:55 PM CDT) [facility] Amphetamines Screen Urine Not detected Not detected 03/27/2025 12:16 AM CDT [facility] Barbiturates Screen Urine Not detected Not detected 03/27/2025 12:16 AM CDT [facility] Benzodiazepines Screen Urine Not detected Not detected 03/27/2025 12:16 AM CDT [facility] Cannabinoids Screen Urine Not detected Not detected 03/27/2025 12:16 AM CDT [facility] Cocaine Screen Urine Not detected Not detected 03/27/2025 12:16 AM CDT [facility] Fentanyl Urine Not detected Not detected 03/27/2025 12:16 AM CDT [facility] Methadone Screen Urine Not detected Not detected 03/27/2025 12:16 AM CDT [facility] Opiate Screen Urine Not detected Not detected 03/27/2025 12:16 AM CDT [facility] Phencyclidine Screen Urine Not detected Not detected 03/27/2025 12:16 AM CDT [facility] Urine URINE / Unknown Collection / Unknown 03/26/2025 11:55 PM CDT 03/27/2025 12:01 AM CDT Narrative [facility] - 03/27/2025 12:16 AM CDT [...] - URINE CHEMISTRY STACY ROWELL Final Result [facility] [address] [place] [address] * (ABNORMAL) LIPID PROFILE (03/26/2025 11:55 PM [...] CDT 03/27/2025 12:01 AM CDT Violeta Uriarte YIELD ENGINEER-TEXTURING MACHINE FIXER LAB - CHEMISTRY ORDERABLE S Final Result [facility] [address] [place] [address] * EKG 12-LEAD (03/26/2025 5:33 PM CDT) Ventricular Rate 93 BPM [facility] Atrial Rate 93 BPM [facility] P-R Interval 134 ms [facility] QRS Duration ms 96 ms [facility] Q-T Interval ms 336 ms [facility] QTC Calculation (Bezet) 417 ms [facility] Calculated P Kennedy 62 degrees [facility] Calculated R Kennedy 29 degrees [facility] Calculated T Kennedy 50 degrees [facility] Interpretation EKG Normal sinus rhythm Incomplete right bundle branch block Borderline ECG No previous ECGs available Confirmed by GUERRERO GALINDO MD ([id number]) on 03/27/2025 8:03:07 PM [facility] 03/26/2025 5:33 PM CDT 03/27/2025 8:03 PM CDT us Joy Holbrook MD ECG ORDERABLES Edited Res ult - Final [facility] from Last 3 Months Insurance [facility] Advance Directives * Full Code (Latest Code Status on File) Date Activated Date Inactivated Comments 03/26/2025 11:34 PM 03/29/2025 3:17 PM Care Teams Mushroom Sorter Grader Relationship Specialty Start Date End Date Alpa Doherty, YIELD ENGINEER-QA TESTER [address] [place] [phone] PCP - General Nurse Practitioner Family 5/20/25
--- OUTSIDE RECORDS SUMMARY | 2025-06-05 17:36 | XMS_ITS | Clinical Summary ---
Author Organization [facility] Address [address] [place] [id number] Care Team Providers Care Procurement Representative Name Role Phone Unavailable Primary Care Provider [...]
[2025-06-05 17:47] LABS: Alanine Aminotransferase 40 U/L (6-50); Albumin Level 4.8 g/dL (3.5-5.1); Alkaline Phosphatase 74 U/L (38-126); Anion Gap 9 mmol/L (4-12); Aspartate Amino Transferase 37 U/L (17-59); Bilirubin,Total 0.7 mg/dL (0.2-1.3); Blood Urea Nitrogen 17 mg/dL (9-20); Calcium 9.5 mg/dL (8.4-10.2); Carbon Dioxide 24 mmol/L (22-30); Chloride 104 mmol/L (98-107); Estimated CRCL calculation 97 ml/min; Estimated Glomerular Filt Rate > 60; Glucose 78 mg/dL (65-110); Potassium 4.2 mmol/L (3.4-5.0); Sodium 137 mmol/L (137-145); Total Protein 8.2 g/dL (6.3-8.2)
[2025-06-05 17:51] LABS: Add Urine Microscopic? YES; Appearance Urine Clear (Clear); Glucose Urine UA Negative (Negative); Leukocyte Esterase Ur Trace LEU/UL (Negative); Nitrate Urine Negative (Negative); Non Pathogenic Casts 0-2; Specific Grav Ur 1.008 (1.001-1.035)
--- NOTE | 2025-06-05 18:24 | ED.MALEGU ---
HPI - Male Genitourinary General Chief complaint: Urogenital-Male Stated complaint: testicular pain Time Seen by Provider: 06/05/25 17:03 Source: patient Mode of arrival: ambulatory Limitations: no limitations History of Present Illness HPI Narrative: 30-year-old otherwise healthy here with a complaint of right testicular pain and swelling which is been ongoing almost a year. Patient states that he was seen a year ago had an ultrasound in our ER which showed possible injury, never did follow up with the Urology for the past 1 week or so he has been having increased pain and swelling in his right testicle. Denies any fever or chills no direct trauma. Complaint: testicle pain Onset (ago): year(s) (1) Duration: constant Location: right testicle Severity: moderate Relieving factors: none Exacerbating factors: none Associated symptoms: Reports denies other symptoms Related Data Home Medications ?Medication ?Instructions ?Recorded ?Confirmed ?Last Taken ?Type albuterol sulfate 90 mcg/actuation 1 puff inhalation Q4H PRN 06/06/24 05/07/25 Unknown History aerosol inhaler hydroxyzine HCl 50 mg tablet 50 mg PO QID PRN 04/04/25 05/07/25 Unknown History trazodone 50 mg tablet 50 mg PO QHS PRN 04/04/25 05/07/25 Unknown History aripiprazole 5 mg tablet mg 06/05/25 Unknown History Allergies Allergy/AdvReac Type Severity Reaction Status Date / Time No Known Allergies Allergy Mild Verified 07/13/24 14:45 Review of Systems Review of Systems: All systems reviewed & are unremarkable except as noted in HPI and below Constitutional: Constitutional: Reports no additional constitutional complaints Eyes: Eyes: Reports no additional eye complaints ENT: Reports system reviewed and no additional complaints, except as documented Cardiovascular: Cardiovascular: Reports no additional cardiovascular complaints Respiratory: Respiratory: Reports no additional respiratory complaints Gastrointestinal: Gastrointestinal: Reports no additional gastrointestinal complaints Genitourinary: Genitourinary: Reports as per HPI Musculoskeletal: Musculoskeletal: Reports no additional musculoskeletal complaints [facility] Past Medical History Medical History Anxiety Surgical History Surgical History H/O wisdom tooth extraction Family History Family History Mother Depression Hypertension Father Depression Hypertension Grandparent Hypertension Social History Social History Smoking status: Former smoker Tobacco type: cigarettes Alcohol intake: never Substance use: never Do You Feel Safe in your Home?: Yes Lack of Transportation: No Lack of Food: Never True Current Housing: I Have Housing Concerned About Future Housing: No Difficulty Paying Gas/Electric Bills: No Difficulty Paying for Meds: No Currently Unemployed: No Education: High School Diploma/GED Difficulty w/ Childcare or Family Care: No Living arrangements: with family Additional living arrangements comments: Occupation/Education: occupation Spiritual care concerns: No Agree to blood products: Yes Exam Narrative: GENERAL: Well-appearing, well-nourished, and in no acute distress. HEAD: Normocephalic, atraumatic. EYES: PERRLA and EOMI. ENT: Nares clear, no rhinorrhea or epistaxis. Mucous membranes moist. NECK: Supple. CHEST: Clear to auscultation. No respiratory distress. HEART: Regular rate and rhythm. No murmur heard. Normal peripheral pulses. ABDOMEN: Soft, nontender, nondistended, normal active bowel sounds. Right testicle is hard , non tender . left normal EXTREMITIES: Normal range of motion. No edema. SKIN: Warm, dry, no rash. NEURO: No focal deficits. Alert and oriented x3. PSYCH: Normal mood and affect. Course Course Emergency Course: Informed patient about his lab work, ultrasound findings. I did discuss with urology will follow-up in the office patient is aware about the diagnosis , will follow-up with urologist within week. Vital Signs Vital signs: Vital Signs Temperature 36.8 C 06/05/25 17:00 Pulse Rate 84 06/05/25 17:00 Respiratory Rate 16 06/05/25 17:00 Blood Pressure 128/73 06/05/25 17:00 Pulse Oximetry 99 06/05/25 17:00 Oxygen Delivery Room Air 06/05/25 17:00 Temperature 36.8 C 06/05/25 17:00 Pulse Rate 84 06/05/25 17:00 Respiratory Rate 16 06/05/25 17:00 Blood Pressure 128/73 06/05/25 17:00 Pulse Oximetry 99 06/05/25 17:00 Oxygen Delivery Room Air 06/05/25 17:00 MDM - Male Genitourinary Differential Diagnosis Differential diagnosis: Likely urinary tract infection, epididymitis and other (testicular cancer) Medical Records Attestation: I reviewed the patient's medical records. Lab Data Attestation: I reviewed the patient's lab results. 06/05/25 17:22 06/05/25 17:22 Labs: Lab Results 06/05/25 Range/Units 17:22 WBC 9.7 (4.5-10.0) K/mm3 RBC 4.89 (4.6-6.20) M/mm3 Hgb 14.9 (14.0-18.0) g/dL Hct 44.6 (42.0-52.0) % MCV 91.2 (80-100) fl MCH 30.5 (26-34) pg MCHC 33.4 (32-36) g/dl RDW 13.1 (11.5-14.5) % Plt Count 300 (150-375) k/mm3 MPV 9.4 (7.4-10.4) fl Immature Gran % (Auto) 0.5 (0-0.5) % Neut % (Auto) 66.8 (45.5-73.1) % Lymph % (Auto) 18.2 L (18.3-44.2) % [place] % (Auto) 10.1 H (2.6-8.5) % Eos % (Auto) 3.9 (0-4.4) % Baso % (Auto) 0.5 (0.2-1.2) % Lymph # (Auto) 1.76 (0.9-3.2) K/mm3 [place] # (Auto) 1.0 H (0.1-0.6) K/mm3 Eos # (Auto) 0.4 H (0-0.3) K/mm3 Baso # (Auto) 0.1 (0.0-0.1) K/mm3 Abs Immat Gran (auto) 0.05 H (0.00-0.031) K/mm3 Absolute Neuts (auto) 6.5 (1.3-6.7) K/mm3 Absolute Nucleated RBC 0.000 (0.0-0.012) K/mm3 Nucleated RBC % 0.0 (0.0-0.2) % Sodium 137 (137-145) mmol/L Potassium 4.2 (3.4-5.0) mmol/L Chloride 104 (98-107) mmol/L Carbon Dioxide 24 (22-30) mmol/L Anion Gap 9 (4-12) mmol/L BUN 17 (9-20) mg/dL Creatinine 1.05 (0.7-1.3) mg/dL Estim Creat Clear Calc 97 ml/min Estimated GFR > 60 (59 - ) Glucose 78 (65-110) mg/dL Calcium 9.5 (8.4-10.2) mg/dL Total Bilirubin 0.7 (0.2-1.3) mg/dL AST 37 (17-59) U/L ALT 40 (6-50) U/L Alkaline Phosphatase 74 (38-126) U/L Total Protein 8.2 (6.3-8.2) g/dL Albumin 4.8 (3.5-5.1) g/dL Urine Color Yellow (Yellow) Urine Appearance Clear (Clear) Urine pH 6.5 (5.0-9.0) Ur Specific [place] 1.008 (1.001-1.035) Urine Protein Negative (Negative) mg/dL Urine Glucose (UA) Negative (Negative) mg/dL Urine Ketones Negative (Negative) mg/dL Ur Blood (Man) Negative (Negative) Urine Nitrate Negative (Negative) Urine Bilirubin Negative (Negative) Urine Urobilinogen 0.2 (<2.0) mg/dL Leukocyte Esterase Rfl Trace H (Negative) YOLETTE/UL Urine RBC 0-2 (0-2) /hpf Urine WBC 0-5 (0-3) /hpf Ur Squamous Epith Cells None seen (Few) /hpf Urine Bacteria None seen /hpf Urine Casts 0-2 Imaging Data Radiologist's impression: ITS Impressions Scrotum Ultrasound 06/05/25 17:46 IMPRESSION: 6.1 cm right testicular mass, concerning for malignancy. Recommend urology consultation. Discharge Plan Discharge Clinical Impression: Testicular mass Patient Disposition: Home Condition: Stable Instructions: Testicle Pain (ED) Additional Instructions: please call urology for an appointment, take Tylenol ibuprofen for pain. Patient Language: Thai Prescriptions: No Action aripiprazole 5 mg tablet albuterol sulfate 90 mcg/actuation HFA aerosol inhaler 1 puff inhalation Q4H PRN bupropion HCl [Wellbutrin XL] 150 mg tablet extended release 24 hr 150 mg PO QAM Qty: 30 1RF hydroxyzine HCl 50 mg tablet 50 mg PO QID PRN trazodone 50 mg tablet 50 mg PO QHS PRN paroxetine HCl 30 mg tablet 30 mg PO DAILY Qty: 30 1RF Follow-up/Referrals: stope [Other] Alpa Doherty APRN [Primary Care Provider] - Alireza Damon MD [Physician] - Time of Disposition: 18:39
== END 2025-06-05 18:46 | disposition home or self-care (01) ==
PROVIDERS: Emergency Provider Family Medicine; PCP Nurse Practitioner Family
DX: N50.9 Disorder of male genital organs, unspecified (principal); F41.9 Anxiety disorder, unspecified; Z87.891 Personal history of nicotine dependence
CPT/HCPCS: 36415; 76870; 80053; 81001; 85025; 93976; 99284